=== PATIENT | male | born 1995 | race Caucasian/White ===

== ENCOUNTER 2018-11-15 22:28 | Emergency (ER) | payer BC, OTHER ==
[~2018-11-15] VITALS: Ht 165.1 cm; Wt 180.5 kg
--- NOTE | 2018-11-15 23:01 | ED GU-Male ---
General Chief Complaint: - Urinary Stated Complaint: "PENIS COMING IN AND OUT" Nursing Triage Note: PT ARRIVES WITH C/O "WHILE I WAS IN THE SHOWER, I NOTICED MY PENIS WAS IN MORE THAN NORMAL AND IT TOOK ME A LONG TIME TO GET IT OUT AND THEN IT WENT BACK IN" PT STATES PENIS FEELS NUMB. PT DENIES ANY BACK INJURY OR TRAUMA. PT DENIES NUMBNESS OR TINGLING IN LEGS. PT DENIES PENILE DISCHARGE. PT STATES BURNING AND PAIN WITH URINAITON. PT STATES HE JUST NOTICED THIS TODAY. Source: patient, family (dad) Exam Limitations: no limitations History of Present Illness Date Seen by Provider: Nov 15, 2018 Time Seen by Provider: 22:47 Initial Comments The patient notes that tonight when he was in the shower cleaning himself his penis was retracted inside his body. He attempted to pull out several times and then try to get a direct. He had said that the head became numb. That only lasted a few minutes and went away. He's not having any burning discharge dysuria fevers chills nausea but occasionally for the past year he has had some right lower quadrant in the inguinal area pain especially when he sits up. He's never been evaluated by a surgeon. He did go to his primary care doctor and she did not palpate a hernia. He says it's only become more and more prominent. No pain in the testicles. He is passing gas and stools normally. Allergies and Home Medications Patient Home Medication List Home Medication List Reviewed: Yes Review of Systems Review of Systems Constitutional: No chills, No diaphoresis EENTM: No ear discharge, No ear pain Respiratory: No cough, No short of breath Cardiovascular: No chest pain, No edema Gastrointestinal: see HPI; No abdominal pain, No constipation, No diarrhea, No nausea, No vomiting Genitourinary: see HPI; denies burning, denies discharge, denies dysuria, denies frequency, denies flank pain, denies hematuria, denies pain Musculoskeletal: No back pain, No joint pain Past Fdskwpm-Wvmqcj-Aoijtd Hx Patient Social History Alcohol Use: Denies Use Recreational Drug Use: No Smoking Status: Never a Smoker Recent Foreign Travel: No Contact w/Someone Who Travel: No Recent Infectious Disease Expo: No Recent Hopitalizations: No Physical Abuse: No Sexual Abuse: No Mistreated: No Fear: No Seasonal Allergies Seasonal Allergies: No Past Medical History Surgeries: No Physical Exam Vital Signs Vital Signs - First Documented 11/15/18 22:44 Temp 97.6 Pulse 117 Resp 20 B/P (MAP) 150/101 (117) Pulse Ox 97 O2 Delivery Room Air Capillary Refill : Less Than 3 Seconds Height, Weight, BMI Height: 5'5.00" Weight: 398lbs. oz. [id number]; BMI Method:Stated General Appearance: WD/WN, no apparent distress, obese (massively morbidly obese nearly 400 pounds) HEENT: PERRL/EOMI, pharynx normal Cardiovascular: normal peripheral pulses, regular rate, rhythm Respiratory: no respiratory distress, no accessory muscle use Gastrointestinal: normal bowel sounds, non tender, soft Male: normal genitalia, other (he does have a reclusive penis however the penis is circumcised clean, dry, nonerythematous tender and without any lesions. There is no discharge on milking of the urethra. No pain.) Genital/Rectal: normal genital exam, other (no palpable inguinal hernia bilaterally on Valsalva maneuver) Skin: normal color, warm/dry Progress/Results/Core Measures Suspected Sepsis Recent Fever Within 48 Hours: No Infection Criteria Present: None New/Unexplained Altered Menta: No Sepsis Screen: No Definite Risk SIRS Temperature:97.6 Pulse: 117 Respiratory Rate: 20 Blood Pressure 150 /101 Mean: 117 Results/Orders Vital Signs/I&O 11/15/18 22:44 Temp 97.6 Pulse 117 Resp 20 B/P (MAP) 150/101 (117) Pulse Ox 97 O2 Delivery Room Air Capillary Refill : Less Than 3 Seconds Blood Pressure Mean: 117 Progress Note : Time: 22:59 Progress Note Counseling and reassurance given. We can refer him to Dr. Hollingsworth for reevaluation for possible inguinal hernia or other hernia-type since he is for one year having some additional pain in his right inguinal area. Departure Impression Primary Impression: Acquired buried penis Additional Impression: Right inguinal pain Disposition: 01 HOME, SELF-CARE Condition: Stable Departure-Patient Inst. Decision time for Depature: 23:00 Referrals: VITALIY HOLLINGSWORTH LISA A MD (PCP/Family) Primary Care Physician Patient Instructions: Groin Hernia (DC) Add. Discharge Instructions: Tomorrow during business hours please call the surgeon and asked for an appointment in the clinic to discuss the possibility of an inguinal hernia. Use stool softeners and if you're unable to pass a bowel movement or gas and have significant pain in your abdomen then you should return to the ER for evaluation otherwise follow up in the clinic. Continue to do a thorough job of cleaning and drying your genitalia. If you begin to have difficulty urinating, discharge, pain and follow-up in the clinic. Continue your weight loss as this will help reduce an acquired buried penis. All discharge instructions reviewed with patient and/or family. Voiced understanding. Copy Copies To 1: VITALIY HOLLINGSWORTH TITUS J Nov 15, 2018 23:02
[2018-11-15 23:05] VITALS: BP 150/101
== END 2018-11-15 23:04 | disposition home or self-care (01) ==
LOC: EDUNIT# 22:28 → ER 22:30
DX: N48.83 Acquired buried penis (principal); R10.31 Right lower quadrant pain; E66.01 Morbid (severe) obesity due to excess calories; Z68.44 Body mass index [BMI] 60.0-69.9, adult
CPT/HCPCS: 99282

== ENCOUNTER → 2018-11-24 | Outpatient (CLI) | payer BC ==
--- NOTE | 2018-11-24 14:50 | Diagnostic Imaging Report ---
INDICATION: Right groin pain. TECHNIQUE: Multiple real-time grayscale sonographic images were obtained of the soft tissues of the right lower quadrant, area of pain. CORRELATION STUDY: None. FINDINGS: Imaging of the right lower quadrant area of pain demonstrates a normal-appearing soft tissue echotexture to be present. No definitive fascial type defect or hernia. No mass type of appearance. IMPRESSION: 1. Unremarkable focused soft tissue ultrasound evaluation of the right lower quadrant. No definitive evidence for mass or significant hernia defect. Dictated by: Dictated on workstation # [id number]
== END ==
LOC: RAD 12:06
PROVIDERS: ATTEND Surgery
DX: R10.31 Right lower quadrant pain (principal)
CPT/HCPCS: 76705

== ENCOUNTER → 2022-09-16 | Outpatient (CLI) | payer BC ==
[~2022-09-16] MED LIST: CATHETER FLUSH 10 ML SYR IVP PRN
--- NOTE | 2022-09-16 13:26 | Diagnostic Imaging Report ---
INDICATION: Right upper quadrant pain. Patient was administered 5.5 mCi technetium 99m Choletec intravenously and imaging over the abdomen was performed. At 60 minutes patient ingested 8 ounces of Ensure and a gallbladder ejection fraction was calculated. There is homogeneous uptake of activity by the liver with prompt excretion of activity into the gallbladder and common duct. There is normal passage of activity into the small bowel. Gallbladder ejection fraction is abnormally low at 18%. Normal values are 35% or greater. IMPRESSION: 1. Patent cystic duct and common bile duct. 2. Low gallbladder ejection fraction of 18%. Dictated by: Dictated on workstation # [id number]
== END ==
LOC: CARD 09:41
PROVIDERS: ATTEND Surgery
DX: K81.9 Cholecystitis, unspecified (principal)
CPT/HCPCS: 78227; A9537